=== PATIENT | female | born 1970 | race Caucasian/White ===

== ENCOUNTER 2018-05-15 14:26 | Emergency (ER) | payer MEDICAID ==
[~2018-05-15] VITALS: Ht 152.4 cm; Wt 74.0 kg
[~2018-05-15 14:26] MED LIST: GLUCOTROL PO; MACROBID; METFORMIN PO
[2018-05-15 15:14] VITALS: BP 154/86
== END 2018-05-15 18:21 | disposition home or self-care (01) ==
LOC: ER 14:26
DX: H66.91 Otitis media, unspecified, right ear (principal); K11.20 Sialoadenitis, unspecified; E11.9 Type 2 diabetes mellitus without complications; E78.00 Pure hypercholesterolemia, unspecified; I10 Essential (primary) hypertension; Z98.890 Other specified postprocedural states
CPT/HCPCS: 81025; 99283

== ENCOUNTER 2023-07-08 16:56 | Emergency (ER) | payer MEDICAID ==
[~2023-07-08] VITALS: Ht 157.5 cm; Wt 71.0 kg
[2023-07-08 17:04] VITALS: BP 122/76; PULSE 97; TEMP 98.7; O2SAT 98
[2023-07-08] MEDS ORDERED: ACETAMINOPHEN 325MG TABLET PO STA (18:18)
[2023-07-08] MEDS ORDERED: IBUPROFEN 400MG TABLET PO ONE (20:30)
[2023-07-08 20:40] LABS: CLARITY URINE TURBID (CLEAR); COLOR URINE RED (YELLOW); PROTEIN URINE 1+ (NEGATIVE)
[2023-07-08 20:41] LABS: GLUCOSE URINE NEGATIVE (NEGATIVE); KETONES URINE NEGATIVE (NEGATIVE); LEUKOCYTE ESTERASE URINE 3+ (NEGATIVE); NITRITE URINE POSITIVE (NEGATIVE); OCCULT BLOOD URINE 2+ (NEGATIVE)
[2023-07-08] MEDS ORDERED: PHEN-815 PO (20:44)
[2023-07-08] MEDS ORDERED: LEVO-65 PO (20:44)
[2023-07-08] MEDS ORDERED: TOPUD PO (20:44)
[2023-07-08 20:55] LABS: BACTERIA URINE 2+; RBC URINE 25-50 /hpf (0-2); SQUAMOUS EPITHELIAL CELL URINE 1+ /lpf (RARE/1+); WBC URINE TNTC /hpf (0-2)
== END 2023-07-08 21:11 | disposition home or self-care (01) ==
LOC: ER 16:56
DX: N39.0 Urinary tract infection, site not specified (principal); E11.9 Type 2 diabetes mellitus without complications; E78.00 Pure hypercholesterolemia, unspecified; I10 Essential (primary) hypertension; Z98.890 Other specified postprocedural states
CPT/HCPCS: 81003; 99283